=== PATIENT | female | born 1990 | race Caucasian/White ===

== ENCOUNTER 2021-10-29 01:11 | Observation (INO) | payer OTHER ==
[~2021-10-29] VITALS: Ht 175.3 cm; Wt 86.2 kg
[2021-10-29 02:10] VITALS: BP 131/86
[2021-10-29] MEDS ORDERED: PRETAB PO (02:14)
[2021-10-29] MEDS ORDERED: diphenhydrAMINE 50 MG CAP PO ONE ×2 (02:35→02:42)
[2021-10-29 03:08] LABS: BASOPHILS % (AUTO) 0.1 % (0.0-2.0); EOSINOPHILS % (AUTO) 0.4 % (0.0-4.0); HEMATOCRIT 36.1 % (36-48); HEMOGLOBIN 12.2 g/dL (12.0-16.0); LYMPHOCYTES # (AUTO) 1.6 K/uL (2.5-16.5); LYMPHOCYTES % (AUTO) 16.9 % (20.5-51.1); MEAN CORPUSCULAR HEMOGLOBIN 31 pg (27-31); MEAN CORPUSCULAR HGB CONC 34 g/dL (33-37); MEAN CORPUSCULAR VOLUME 91.5 fL (80-94); MONOCYTES # (AUTO) 0.5 K/uL (0.8-1.0); MONOCYTES % (AUTO) 5.1 % (1.7-9.3); NEUTROPHILS # (AUTO) 7.5 K/uL (1.8-7.7); NEUTROPHILS % (AUTO) 77.5 % (42.2-75.2); PLATELET COUNT (AUTO) 196 K/uL (140-450); RED BLOOD CELL COUNT(AUTO) 3.95 MIL/uL (4.20-5.40); WHITE BLOOD COUNT (AUTO) 9.7 K/uL (4.8-10.8)
[2021-10-29 03:24] LABS: PROTHROMBIN TIME 8.9 secs (10.8-13.4)
[2021-10-29 03:30] LABS: ALBUMIN 2.5 g/dL (3.4-5.0); ANION GAP 13.9 (8-16); CREATININE 0.6 mg/dL (0.6-1.3); POTASSIUM 3.9 mmol/L (3.5-5.1); TOTAL BILIRUBIN 0.4 mg/dL (0.0-1.0); URIC ACID 5.2 mg/dL (2.6-7.2)
[2021-10-29 03:39] LABS: APPEARANCE,URINE CLEAR (CLEAR); BILIRUBIN,URINE NEGATIVE (NEGATIVE); BLOOD, URINE NEGATIVE (NEGATIVE); COLOR,URINE YELLOW (YELLOW); LEUKOCYTE ESTERASE ,URINE NEGATIVE (NEGATIVE); NITRITE, URINE NEGATIVE (NEGATIVE); PH,URINE 7.5 (5.0-9.0); UGLUCOSE NEGATIVE (NEGATIVE)
== END 2021-10-29 03:15 | disposition home or self-care (01) ==
LOC: MLD 01:11
PROVIDERS: ADMIT Obstetrics & Gynecology; ATTEND Obstetrics & Gynecology
DX: O26.893 Other specified pregnancy related conditions, third trimester (principal); R22.9 Localized swelling, mass and lump, unspecified; R10.2 Pelvic and perineal pain; Z3A.35 35 weeks gestation of pregnancy
CPT/HCPCS: 36415; 59025; 80053; 81003; 82150; 82570; 83690; 84550; 85025; 85384; 85610; 85730; 86886; 86900; 86901; G0378; G0379; Q0163

== ENCOUNTER 2021-11-25 21:16 | Inpatient (IN) | payer OTHER, SELFPAY ==
[~2021-11-25] VITALS: Ht 175.3 cm; Wt 117.9 kg
[~2021-11-25 21:16] MED LIST: PRETAB PO
[2021-11-25] MEDS ORDERED: CARBOPROST 250 MCG/ML AMP IM PRN (22:00)
[2021-11-25] MEDS ORDERED: METHYLERGONOVINE 0.2 MG/ML AMP IM PRN (22:00)
[2021-11-25] MEDS ORDERED: OXYTOCIN 20 UNITS in LACTATED RINGERS 1,000 ML IV SCH (22:00)
[2021-11-25] MEDS ORDERED: MORPHINE SULFATE 5 MG/ML VIAL IVP PRN (22:00)
[2021-11-25] MEDS ORDERED: ONDANSETRON 4 MG/2 ML VIAL IVP PRN (22:00)
[2021-11-25] MEDS ORDERED: MISOPROSTOL 25 MCG TAB VG PRN (22:00)
[2021-11-25 22:35] LABS: APPEARANCE,URINE SL CLOUDY (CLEAR); BILIRUBIN,URINE NEGATIVE (NEGATIVE); BLOOD, URINE NEGATIVE (NEGATIVE); COLOR,URINE YELLOW (YELLOW); LEUKOCYTE ESTERASE ,URINE NEGATIVE (NEGATIVE); NITRITE, URINE NEGATIVE (NEGATIVE); PH,URINE 6.5 (5.0-9.0); UGLUCOSE NEGATIVE (NEGATIVE)
[2021-11-25 22:35] LABS: BASOPHILS % (AUTO) 0.3 % (0.0-2.0); EOSINOPHILS # (AUTO) 0.2 K/uL (0-0.4); EOSINOPHILS % (AUTO) 2.2 % (0.0-4.0); HEMATOCRIT 32.8 % (36-48); HEMOGLOBIN 11.3 g/dL (12.0-16.0); LYMPHOCYTES # (AUTO) 2.4 K/uL (2.5-16.5); LYMPHOCYTES % (AUTO) 27.9 % (20.5-51.1); MEAN CORPUSCULAR HEMOGLOBIN 31 pg (27-31); MEAN CORPUSCULAR HGB CONC 34 g/dL (33-37); MEAN CORPUSCULAR VOLUME 90.9 fL (80-94); MONOCYTES # (AUTO) 0.7 K/uL (0.8-1.0); NEUTROPHILS # (AUTO) 5.4 K/uL (1.8-7.7); NEUTROPHILS % (AUTO) 61.6 % (42.2-75.2); PLATELET COUNT (AUTO) 205 K/uL (140-450); RED BLOOD CELL COUNT(AUTO) 3.61 MIL/uL (4.20-5.40); WHITE BLOOD COUNT (AUTO) 8.8 K/uL (4.8-10.8)
[2021-11-25 22:56] LABS: ALBUMIN 2.5 g/dL (3.4-5.0); ANION GAP 13.5 (8-16); CARBON DIOXIDE 22.4 mmol/L (21-32); CREATININE 0.6 mg/dL (0.6-1.3); POTASSIUM 3.9 mmol/L (3.5-5.1); TOTAL BILIRUBIN 0.2 mg/dL (0.0-1.0)
[2021-11-25] MEDS: LACTATED RINGERS 1,000 ML IV SCH (23:09)
[2021-11-25 23:22] VITALS: BP 132/68
[2021-11-25 23:23] LABS: BARBITURATE, URINE NEGATIVE ng/ml (NEG <=200); BENZODIAZEPINE, URINE NEGATIVE ng/mL (NEG <=200); CANNABINOID, URINE NEGATIVE ng/mL (NEG <=50); COCAINE, URINE NEGATIVE ng/mL (NEG <=300); OPIATE, URINE NEGATIVE ng/mL (NEG <=2000); PHENCYCLIDINE SCREEN,URINE NEGATIVE ng/mL (NEG <=25)
[2021-11-26] MEDS: LACTATED RINGERS 1,000 ML IV SCH ×2 (07:07→23:29)
[2021-11-26] MEDS ORDERED: OXYTOCIN 20 UNITS/LR PREMIX 1,000 ML IV ONE (11:23)
--- NOTE | 2021-11-26 11:38 | NUR ---
PATIENT HAS BEEN SCREENED AND CATEGORIZED LOW NUTRITION RISK. PATIENT WILL BE SEEN WITHIN 7 DAYS OF ADMISSION. 11/26/21-12/01/[address]
[2021-11-26] MEDS ORDERED: ROPIVACAINE 0.2%/NS PREMIX 200 ML EPI SCH (22:55)
[2021-11-26] MEDS ORDERED: ONDANSETRON 4 MG/2 ML VIAL IVP SCH (23:10)
[2021-11-26] MEDS ORDERED: ROPIVACAINE 0.2%/NS PREMIX 200 ML EPI ONE (23:17)
[2021-11-26] MEDS ORDERED: fentaNYL citrate 0.05 MG/ML VIAL ONE (23:43)
[2021-11-26] MEDS ORDERED: FENTANYL C 0.1 MG/HR PATCH TD ONE (23:45)
[2021-11-27] MEDS ORDERED: fentaNYL citrate 0.05 MG/ML VIAL IVP SCH (01:55)
[2021-11-27] MEDS ORDERED: ePHEDrine 50 MG/ML VIAL IV SCH (03:05)
[2021-11-27] MEDS ORDERED: ePHEDrine 50 MG/ML VIAL ONE (03:15)
[2021-11-27] MEDS: LACTATED RINGERS 1,000 ML IV SCH ×4 (04:47→13:26)
[2021-11-27] MEDS ORDERED: CITRIC ACID/SODIUM CITRATE 30 ML UDC PO SCH (09:55)
[2021-11-27] MEDS ORDERED: ROPIVACAINE 0.2%/NS PREMIX 200 ML EPI ONE (14:01)
[2021-11-27] MEDS ORDERED: OXYTOCIN 10 UNITS/ML VIAL IM PRN (15:40)
[2021-11-27] MEDS ORDERED: BENZOCAINE/MENTHOL 20%-0.5% 60 GM CAN TP PRN (15:40)
[2021-11-27] MEDS ORDERED: MEASLES, MUMPS, AND RUBELLA 1 VIAL SQVAC ONE (15:40)
[2021-11-27] MEDS: IBUPROFEN 800 MG TAB PO PRN (17:54)
[2021-11-28] MEDS: IBUPROFEN 800 MG TAB PO PRN ×2 (02:49→18:01)
[2021-11-28 06:03] LABS: HEMATOCRIT 30.6 % (36-48); HEMOGLOBIN 10.5 g/dL (12.0-16.0)
[2021-11-29] MEDS: IBUPROFEN 800 MG TAB PO PRN (03:39)
== END 2021-11-29 13:00 | disposition home or self-care (01) | DRG 560 ==
LOC: MLD 21:16 → MFCC 11-27 18:59
PROVIDERS: ADMIT Obstetrics & Gynecology; ATTEND Obstetrics & Gynecology
PROC: 10E0XZZ Delivery of Products of Conception, External Approach (ICD-10-PCS; principal; 2021-11-27)
PROC: 0KQM0ZZ Repair Perineum Muscle, Open Approach (ICD-10-PCS; 2021-11-27)
PROC: 3E0R3BZ Introduction of Anesthetic Agent into Spinal Canal, Percutaneous Approach (ICD-10-PCS; 2021-11-27)
PROC: 00HU33Z Insertion of Infusion Device into Spinal Canal, Percutaneous Approach (ICD-10-PCS; 2021-11-27)
PROC: 3E0P7GC Introduction of Other Therapeutic Substance into Female Reproductive, Via Natural or Artificial Opening (ICD-10-PCS; 2021-11-27)
DX: O48.0 Post-term pregnancy (principal); Z37.0 Single live birth; D62 Acute posthemorrhagic anemia; O14.94 Unspecified pre-eclampsia, complicating childbirth; O69.81X0 Labor and delivery complicated by cord around neck, without compression, not applicable or unspecified; Z20.822 Contact with and (suspected) exposure to COVID-19; O70.1 Second degree perineal laceration during delivery; O99.02 Anemia complicating childbirth; O99.284 Endocrine, nutritional and metabolic diseases complicating childbirth; E66.3 Overweight; Z3A.40 40 weeks gestation of pregnancy
CPT/HCPCS: 36415; 51702; 59200; 59409; 76815; 80053; 80305; 81003; 85018; 85025; 86592; 86886; 86900; 86901; J0690; J2590; J2795; J3010; J7060; J7120; Q0092